=== PATIENT | male | born 1945 | race Caucasian/White ===

== ENCOUNTER → 2020-07-07 | Day surgery (SDC) | payer MEDICARE, OTHER ==
[~2020-07-07] VITALS: Ht 175.3 cm; Wt 108.9 kg
[~2020-07-07] MED LIST: SYNTHROID150 MCG PO; VITAMIN D 40400 UNIT PO
== END | disposition home or self-care (01) ==
LOC: OR 07:17
DX: D12.0 Benign neoplasm of cecum (principal); K63.5 Polyp of colon; K64.1 Second degree hemorrhoids; I10 Essential (primary) hypertension; R00.1 Bradycardia, unspecified; M48.02 Spinal stenosis, cervical region; E03.9 Hypothyroidism, unspecified; H91.90 Unspecified hearing loss, unspecified ear; R73.03 Prediabetes; Z79.899 Other long term (current) drug therapy
CPT/HCPCS: 93005; 93270; J2704; J7040

== ENCOUNTER → 2020-08-12 | Outpatient (CLI) | payer MEDICARE, OTHER ==
[2020-08-12 10:10] LABS: BUN/CREATININE RATIO 17 (0-10)
== END ==
LOC: LAB 09:21
PROVIDERS: Internal Medicine Cardiovascular Disease
DX: I10 Essential (primary) hypertension (principal); I47.2 Ventricular tachycardia; I49.3 Ventricular premature depolarization
CPT/HCPCS: 36415; 80048

== ENCOUNTER → 2020-08-27 | Outpatient (CLI) | payer MEDICARE, OTHER | LOC: HEART 5 09:13 | DX: I47.2 Ventricular tachycardia (principal); I08.3 Combined rheumatic disorders of mitral, aortic and tricuspid valves; I27.20 Pulmonary hypertension, unspecified | CPT/HCPCS: 93306 ==

== ENCOUNTER → 2020-12-09 | Outpatient (CLI) | payer MEDICARE, OTHER | LOC: LAB 11:51 | DX: Z12.5 Encounter for screening for malignant neoplasm of prostate (principal) | CPT/HCPCS: 36415; G0103 ==

== ENCOUNTER → 2021-12-20 | Outpatient (CLI) | payer MEDICARE, OTHER | LOC: KOH-I 10:02 | DX: I10 Essential (primary) hypertension (principal); R53.83 Other fatigue; R05.3 Chronic cough; Z86.16 Personal history of COVID-19 | CPT/HCPCS: 71046 ==

== ENCOUNTER → 2022-01-05 | Outpatient (CLI) | payer MEDICARE, OTHER | LOC: KOH-I 12-31 08:30 | DX: R05.3 Chronic cough (principal); R53.83 Other fatigue; Z86.16 Personal history of COVID-19; J98.11 Atelectasis; R91.8 Other nonspecific abnormal finding of lung field | CPT/HCPCS: 71250 ==

== ENCOUNTER → 2022-01-17 | Outpatient (CLI) | payer MEDICARE, OTHER | LOC: HEART 5 13:30 | DX: I49.3 Ventricular premature depolarization (principal) ==

== ENCOUNTER → 2022-01-28 | Outpatient (CLI) | payer MEDICARE, OTHER | LOC: EXRD 08:21 → HEART 5 02-22 09:00 | DX: K80.20 Calculus of gallbladder without cholecystitis without obstruction (principal); K86.0 Alcohol-induced chronic pancreatitis; K76.0 Fatty (change of) liver, not elsewhere classified | CPT/HCPCS: 76705 ==

== ENCOUNTER → 2022-02-22 | Outpatient (CLI) | payer MEDICARE, OTHER | LOC: HEART 5 09:11 | DX: I49.5 Sick sinus syndrome (principal); I10 Essential (primary) hypertension; I47.2 Ventricular tachycardia | CPT/HCPCS: 78452; 93306; A9502; J2785 ==